=== PATIENT | female | born 1950 | race Caucasian/White ===

== ENCOUNTER 2017-03-20 22:08 | Emergency (ER) | payer OTHER, MEDICARE ==
[~2017-03-20] VITALS: Ht 170.2 cm; Wt 90.7 kg
[2017-03-20 22:21] VITALS: BP 181/84
[2017-03-20] MEDS ORDERED: WARF4TAB68 PO (22:25)
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
[2017-03-20 23:57] LABS: INR 2.4 (0.8-1.1)
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
== END 2017-03-21 00:37 | disposition home or self-care (01) ==
LOC: ER 22:08
DX: S09.90XA Unspecified injury of head, initial encounter (principal); Z86.718 Personal history of other venous thrombosis and embolism; Z79.01 Long term (current) use of anticoagulants; V43.52XA Car driver injured in collision with other type car in traffic accident, initial encounter; Y93.89 Activity, other specified; Y99.8 Other external cause status; Y92.89 Other specified places as the place of occurrence of the external cause
CPT/HCPCS: 36415; 70450; 85610; 99285-25